=== PATIENT | male | born 1970 | race Caucasian/White ===

== ENCOUNTER 2023-08-22 19:57 | Emergency (ER) | payer BC, SELFPAY ==
[2023-08-22 20:06] VITALS: BP 173/117
--- NOTE | 2023-08-22 20:49 | ED.GENMED ---
History of Present Illness
General
Chief Complaint: DVT/Possible Blood Clot
Source: patient
Exam Limitations: none
Time Seen by Provider: 08/22/23 20:34
Travel History
Have you had any contact with someone who has COVID-19?: No
Do you have any symptoms of coronavirus? Fever > 100 degrees, chills, cough, shortness of breath, sore throat, loss of taste or smell, muscle aches, or headache?: No
History of Present Illness
History of Present Illness:
This is a 52 year old male that comes in with c/o left groin pain. States that yesterday when he was at work in [employer] around 12 noon he started with pain in the left groin. Stae that this has progressed and he know has a hard time walking and the
pain goes down into his leg. States that he felt that the left thigh was swollen today. States that he took Advil yesterday and this did nothing for the pain. States that he does work out but he was not working out yesterday. Denies any fever,
chills, chest pain, SOB, abd pain, nausea, vomiting, diarrhea, headache, dizziness, urinary burning.
Past History
Past History
ED Past Medical History: None; Negative Asthma, HTN, Hypercholesterolemia or NIDDM
ED Past Surgical History: None
Social History
Tobacco: Non-smoker
Alcohol: None
Personal:
Living: with family
Employment: Employed
Review of Systems
Review of Systems
All Other Systems: ROS reviewed and negative except as documented in HPI and ROS
Constitutional: Reports no symptoms; Denies fever or chills
EENT: Reports no symptoms
Respiratory: Reports no symptoms; Denies cough or trouble breathing
Cardiac: Reports no symptoms; Denies chest pain
ABD/GI: Reports no symptoms; Denies abdominal pain, nausea, vomiting or diarrhea
: Reports no symptoms; Denies dysuria, frequency or urgency
Musculoskeletal: Reports other (Pain left groin into left leg )
Skin: Reports no symptoms
Neurological: Reports no symptoms; Denies dizzy or headache
Psychiatric: Reports no symptoms
Phy Exam
General Physical Exam
General Presentation: moderate distress
General age: appears stated age
General Skin: warm and dry
General Habitus: normal
General Mental: alert
General Hydration: appears well hydrated
ENT Exam
ENT Exam: TM's normal, pharynx normal and neck supple
Eye Exam
Eye Exam: EOMI
Cardiovascular Exam
Cardiovascular Exam: regular rate/rhythm, no edema, no murmur and normal peripheral pulses
Pulmonary Exam
Pulmonary Exam: lungs clear, no respiratory distress, no rales, chest non tender, no crackles, no rhonchi, no wheezing and no cough
Gastrointestinal Exam
Gastrointestinal Exam: normal bowel sounds, non tender, soft, no organomegaly, no pulsatile mass and non distended
Musculoskeletal Exam
Musculoskeletal Exam: no edema and other (Limited ROM left leg due to pain. Left groin palpable tenderness. Negative for any redness or swelling noted)
Skin Exam
Skin Exam: normal color, warm/dry, no rash and no petechia
Psychiatric Exam
Psychiatric Exam: normal mood/affect
Course
Orders/Labs/Results
Orders:
Orders
08/22/23 20:08
US Legs, Left [US Periph Venous LOWER Ext LT] Urgent
Comment:
Reason For Exam: pain and swelling
08/22/23 20:48
Hip, Left 2-3 Views [CR Hip - LT w/wo Pel 2-3 Vw*] Urgent
Comment:
Reason For Exam: lEFT GROIN PAIN
Include a pelvis x-ray?: Yes
08/22/23 21:00
Ketorolac [Toradol] 30 mg IV NOW STA
08/22/23 21:02
Acetaminophen [Tylenol] 1,000 mg PO NOW STA
08/22/23 21:06
Complete Blood Count/With Diff Urgent
Comprehensive Metabolic Panel Urgent
Abnormal Lab Results
08/22/23
21:06
RBC 4.51 L 10^6/uL
(4.70-6.10)
MCH 31.7 H pg
(27.0-31.0)
Absolute Neuts (auto) 7.3 H 10^3/uL
(1.4-6.5)
Absolute Monos (auto) 1.8 H 10^3/uL
(0.1-0.6)
Lymphocytes % 15.2 L %
(20.5-51.1)
Monocytes % 17.0 H %
(1.7-9.3)
BUN 21 H mg/dl
(9-20)
Glucose 115 H mg/dl
(70-99)
08/22/23 21:06
08/22/23 21:06
Slight Dehydration. Glucose nonfasting.
Vital Signs
Initial and Last Documented VS:
Initial Vital Signs
Temp Pulse Resp BP Pulse Ox
98.1 F 113 18 173/117 98
08/22/23 20:06 08/22/23 20:06 08/22/23 20:06 08/22/23 20:06 08/22/23 20:06
Last Documented Vital Signs
Temp Pulse Resp BP Pulse Ox
98.1 F 91 18 123/89 100
08/22/23 20:06 08/22/23 22:27 08/22/23 20:06 08/22/23 22:27 08/22/23 20:51
MDM/Problems Addressed
Differential Diagnosis Includes:
Pulled groin Muscle. Pelvic fracture
MDM/Problems Addressed:
This is a 52 year old male that comes in with c/o left groin pain. States that this started yesterday when he was in [place]. States that he took Advil yesterday and this did not help.
Will get labs, US and medicate for pain.
Back into see patient and explained that he does have a DVT.Patient will be place on a blood thinner and given his first dose here. Patient to follow up with the family doctor. Patient to return with any concerns.
Chronic conditions affecting care:
NA
Acute Exacerbation and/or Progression of Chronic Illness:
NA
*Radiology
Radiology exam reviewed: radiology read reviewed (Left hip- Negative for acute fracture or dislocation. Possible previous left labral injury. Nonurgent MRI of the left hip could be performed if further imaging is indicated. US- There is occlusive
thrombus in the left peroneal vein of the calf. NO other evidence of deep venous thrombosis of the) and other (US cont- left lower extremity. )
*Pulse Oximetry
Patient hypoxic: no
*EKG
Interpreted by ED Provider?: NA
Rate: EKG- N/A
*Third Miller Interpretation
Rate: Third Miller- N/A
*Critical Care Note
Total Time (30-74mins, 75-104mins- exclusive of procedures): Not Applicable
ED Attending Note
-
Portions of this chart may have been created with voice recognition software.� Occasional wrong word or��sound alike� substitutions may have occurred due to the inherent limitations of voice recognition software.
Discharge Plan
Departure
Patient Disposition: Home (Routine Discharge)
Date of Disposition: 08/22/23
Time of Disposition: 23:02
Patient with high blood pressure during this ER visit?: No
Condition: Good
Covid-19: Not Applicable
Discharge Problem:
DVT (deep venous thrombosis)
Instructions: Deep Vein Thrombosis (Blood Clots in the Legs) (DC)
Prescriptions:
New
Eliquis 5 mg tablet
10 mg PO BID 7 Days Qty: 28 0RF
Referrals:
Wayne Hager MD [Family Provider] - Follow up in 2-3 days
Activity Restrictions/Additional Instructions:
As discussed, you have a blood clot in the left peroneal vein of the calf. You have been place on a blood thinner. Please take the Eliquis 10mg BID for the next 7 days. You will need to follow up with the family doctor for the second Prescription as
the dosage decreased after the first week. You may use Tylenol 1000mg every 6 hours for pain. PLEASE NO ALEVE, MOTRIN ADVIL. IF YOU FALL AND HIT YOUR HEAD OU WILL NEED TO RETURN TO THE EMERGENCY ROOM. Please follow up with the family doctor in the
next 2-3 days for recheck. IF YOU HAVE INCREASED PAIN, REDNESS OR YOU HAVE ANY OTHER CONCERNS PLEASE RETURN TO THE EMERGENCY ROOM.
Interventions
Interventions:
*Risk Screen - Suicide Last Done: 08/22/23 20:06
*General Assessment Last Done: 08/22/23 20:06
*Neglect/Abuse Screening Last Done: 08/22/23 20:06
*ED COVID-19 Vaccine History Last Done: 08/22/23 20:06
ED- Cardiac Assessment Last Done: 08/22/23 20:51
ED- Pulmonary Assessment Last Done: 08/22/23 20:51
ED-Peripheral Vascular Assessment Last Done: 08/22/23 20:51
ED-Skin Assessment Last Done: 08/22/23 20:51
[2023-08-22] MEDS: TYLENOL 1000 MG PO (21:06)
[2023-08-22] MEDS: TORADOL 30 MG IV (21:06)
[2023-08-22 21:10] LABS: % Basophils 0.3 % (0-2); % Eosinophils 0.1 % (0-6); % Immature Granulocytes 0.2 % (0-0.5); % Lymphocytes 15.2 % (20.5-51.1); % Neutrophils 67.2 % (42.2-75.2); Absolute Lymphocytes 1.6 10^3/uL (1.2-3.4); Absolute Monocytes 1.8 10^3/uL (0.1-0.6); Absolute Neutrophils 7.3 10^3/uL (1.4-6.5); Hemoglobin 14.3 g/dL (13.0-18.0); Mean Corp Hgb Conc. 36.7 g/dL (33.0-37.0); Mean Corpuscular Hgb 31.7 pg (27.0-31.0); Mean Corpuscular Volume 86.5 fL (80.0-94.0); Mean Platelet Volume 8.1 fL (7.4-10.4); Nucleated Red Blood Cells % 0 % (-); Platelet Count 295 10^3/uL (130-400); Red Blood Cell Count 4.51 10^6/uL (4.70-6.10); Red Cell Dist. Width 12.3 % (11.5-14.5); White Blood Cell Count 10.8 10^3/uL (4.8-10.8)
[2023-08-22 21:24] LABS: ALT (SGPT) 33 U/L (0-50); AST (SGOT) 32 U/L (17-59); Albumin 4.9 g/dl (3.5-5.0); Alkaline Phosphatase 98 U/L (38-126); Blood Urea Nitrogen 21 mg/dl (9-20); Calcium 9.6 mg/dl (8.4-10.2); Carbon Dioxide 25 mmol/L (22-30); Chloride 105 mmol/L (98-107); Glucose 115 mg/dl (70-99); Potassium 4.2 mmol/L (3.5-5.1); Sodium 136 mmol/L (135-145); Total Bilirubin 0.7 mg/dl (0.2-1.3); Total Protein 7.8 g/dl (6.3-8.2); eGFR > 60.00
[2023-08-22 22:27] VITALS: BP 123/89
[2023-08-22] MEDS: ELIQUIS 10 MG PO (23:13)
[2023-08-22 23:25] VITALS: BP 137/91
== END 2023-08-22 23:26 | disposition home or self-care (01) ==
LOC: EMR 19:57
PROVIDERS: Clinical Nurse Specialist Family Health; EMERGENCY PHYSICIAN Student in an Organized Health Care Education/Training Program; FAMILY PHYSICIAN Family Medicine
DX: I82.402 Acute embolism and thrombosis of unspecified deep veins of left lower extremity (principal)
CPT/HCPCS: 99284; 96374; 73502; 80053; 85025; 93971

== ENCOUNTER 2023-08-24 17:12 | Observation (INO) | payer BC, SELFPAY ==
[2023-08-24 12:32] VITALS: BP 166/97
[2023-08-24] MEDS: NSS 1000 IV (14:20)
[2023-08-24 14:42] LABS: % Basophils 0.6 % (0-2); % Eosinophils 0.7 % (0-6); % Immature Granulocytes 0.2 % (0-0.5); % Lymphocytes 17.9 % (20.5-51.1); % Monocytes 14.3 % (1.7-9.3); % Neutrophils 66.3 % (42.2-75.2); Absolute Basophils 0.1 10^3/uL (0-0.2); Absolute Eosinophils 0.1 10^3/uL (0-0.7); Absolute Lymphocytes 1.6 10^3/uL (1.2-3.4); Absolute Monocytes 1.2 10^3/uL (0.1-0.6); Absolute Neutrophils 5.8 10^3/uL (1.4-6.5); Hematocrit 36.9 % (39.0-52.0); Hemoglobin 13.2 g/dL (13.0-18.0); Mean Corp Hgb Conc. 35.8 g/dL (33.0-37.0); Mean Corpuscular Hgb 31.3 pg (27.0-31.0); Mean Corpuscular Volume 87.4 fL (80.0-94.0); Mean Platelet Volume 8.3 fL (7.4-10.4); Nucleated Red Blood Cells % 0 % (-); Platelet Count 272 10^3/uL (130-400); Red Blood Cell Count 4.22 10^6/uL (4.70-6.10); Red Cell Dist. Width 12.5 % (11.5-14.5); White Blood Cell Count 8.7 10^3/uL (4.8-10.8)
[2023-08-24 15:00] LABS: ALT (SGPT) 57 U/L (0-50); AST (SGOT) 61 U/L (17-59); Albumin 4.3 g/dl (3.5-5.0); Alkaline Phosphatase 91 U/L (38-126); Blood Urea Nitrogen 17 mg/dl (9-20); Calcium 9.3 mg/dl (8.4-10.2); Carbon Dioxide 26 mmol/L (22-30); Chloride 107 mmol/L (98-107); Glucose 98 mg/dl (70-99); Potassium 3.8 mmol/L (3.5-5.1); Sodium 138 mmol/L (135-145); Total Bilirubin 1.3 mg/dl (0.2-1.3); Total CK 126 U/L (55-170); Total Protein 7.1 g/dl (6.3-8.2); eGFR > 60.00
--- NOTE | 2023-08-24 15:18 | ED.MUSCINJ ---
HPI-Injury
<Clarisse Whitmore CHAR HOUSE SUPERVISOR - Last Filed: 08/25/23 12:35>
General
Chief Complaint: Musculo-Skeletal Complaint
Source: patient and physician
Exam Limitations: none
Time Seen by Provider: 08/24/23 13:03
Nursing documentation reviewed up to this point in time: agreed with
Travel History
Have you had any contact with someone who has COVID-19?: No
Do you have any symptoms of coronavirus? Fever > 100 degrees, chills, cough, shortness of breath, sore throat, loss of taste or smell, muscle aches, or headache?: No
History of Present Illness-Injury
Initial Injury comments:
52 yo male with persistent and worsening pain left hip and thigh over past 3 days. seen here 2 days ago and dx with DVT occlusive thrombus in the left peroneal vein of the calf and started on Eliquis. Followed up with PCP Dr. Hager today due to
increasing pain and sent here to r/o septic hip.
Pt denies fever, has no back pain
Had dental work 2 weeks ago, one week ago had foul taste in mouth for one day, then resolved.
Is able to ambulate but with pain.
Past History
<Clarisse Whitmore, [employer] HOU[employer] SUPERVISOR - Last Filed: 08/25/23 12:35>
Past History
ED Past Medical History: None; Negative Asthma, HTN, Hypercholesterolemia or NIDDM
ED Past Surgical History: None
Social History
Tobacco: Non-smoker
Alcohol: None
Personal:
Living: with family
Employment: Employed
Review of Systems
<Clarisse Whitmore, [employer] HOU[employer] SUPERVISOR - Last Filed: 08/25/23 12:35>
Review of Systems
Allergies reviewed?: Yes
All Other Systems: ROS reviewed and negative except as documented in HPI and ROS
Constitutional: Denies fever
ABD/GI: Denies abdominal pain
Musculoskeletal: Reports edema and other (pain left hip and thigh, mild swelling of thigh); Denies neck pain or back pain
Skin: Reports no symptoms
Neurological: Denies weakness
Phy Exam
<Clarisse Whitmore, [employer] HOUSE SUPERVISOR - Last Filed: 08/25/23 12:35>
Physical Exam
Physical Exam:
GENERAL: No acute distress. A&Ox3.
CONSTITUTIONAL: Afebrile.
EYES: clear, conjunctivae normal
ENMT: moist mucus membranes, Pharynx nl
RESPIRATORY: Regular respirations, nonlabored, lungs clear.
CARDIOVASCULAR: Regular rate and rhythm, no murmurs, no rubs.
GI: Soft, nontender, normal BS
MUSCULOSKELETAL: Left thigh slightly larger than right. No redness or warmth. Limited ROM left hip. Distal neurovascular intact. Ambulates with limp. Well perfused.
SKIN: Warm, dry, pink
PSYCH: Normal mood and affect. Well kept, interactive and appropriate
NEUROLOGIC: Awake, alert and oriented. No focal neurological deficits
Injury Course
<Clarisse Whitmore, [employer] SUPERVISOR - Last Filed: 08/25/23 12:35>
Orders/Labs/Results
Orders:
Orders
08/24/23 14:05
0.9% Sodium Chloride 1000 ml [Nss] 1,000 ml IV BOLUS
08/24/23 14:17
CPK Isoenzyme Urgent
CRP, Highly Sensitive Urgent
Complete Blood Count/With Diff Urgent
Comprehensive Metabolic Panel Urgent
Erythrocyte Sed Rate Urgent
Comment: ADD ON
08/24/23 Dinner
Regular
At Your Request: Full Participation
Does patient need a safe tray?: No
08/24/23 15:22
HYDROmorphone [Dilaudid] 1 mg IV NOW STA
Ondansetron Injectable [Zofran] 4 mg IV NOW STA
08/24/23 16:11
Admit/Transfer Patient As Directed
Co-Sign Provider:
Level of Care: Observation services
Assign to:: Medical/Surgical
Physician / Group: Monty
Diagnosis: Intractable hip pain
08/24/23 16:24
Lactic Acid Q4H
Comment: CANCEL 2nd LACTIC ACID IF 1st LACTIC ACID IS LESS THAN 2
Blood Culture Q30M
GEORGE Source: Blood/Venous
Specimen Description:
08/24/23 16:26
Blood Culture Q30M
GEORGE Source: Blood/Venous
Specimen Description:
08/24/23 16:49
Code Status As Directed
Resuscitation Status: Full Code
08/24/23 16:[address] See Dose Instructions PO NOW STA
Discontinue all Active Warfarin orders?: Yes
08/24/23 19:52
Acetaminophen [Tylenol] 1,000 mg PO Q6H PRN
HYDROmorphone [Dilaudid] 1 mg IV Q4HPRN PRN
Heparin 74757 Units/250 ml 25,000 units in 250 ml IV PER PROTOCOL
Weight to be used for heparin protocol in kilograms (kg):: 62.596
Protocol:: DVT/PE
PTT Goal Range to be used:: PTT 73 to 111 seconds
Order type:: Initial
INITIAL Infusion Dose (UNITS/KG/hr) & then follow protocol:: 18 units/kg/hr
Infusion Dose in UNITS/hr & then follow protocol (UNITS/hr):: 1,100
INFUSION RATE in mL/hr & then follow protocol (mL/hr):: 11
For DVT/PE algorithm, re-bolus for low PTT?: Yes
PTT less than or equal to 64 seconds:: Re-bolus 80 units/kg (max 10,000units). Increase by 300 units/hr
(+ 3mL/hr)
PTT 64.1 to 72.9 seconds:: Re-bolus 40 units/kg (max 5,000 units). Increase by 100 units/hr
(+ 1mL/hr)
PTT 73 to 111 seconds:: Target Range. No change in rate.
PTT 111.1 to 130.9 seconds:: Decrease rate by 100 units/hr (- 1 mL/hr)
PTT 131 to 199.9 seconds:: HOLD for 1 hr. Then decrease by 200 units/hr (- 2mL/hr)
PTT greater than or equal to 200 seconds:: HOLD for 2 hrs & Notify Provider. Then decrease by 300 units/hr
(- 3mL/hr)
Lab follow-up:: Each change, PTT q6h until 2 consecutive are therapeutic. Then
PTT daily.
Ondansetron Injectable [Zofran] 4 mg IV Q6HPRN PRN
08/24/23 19:52
Heparin Protocol- PTT Orders As Directed
PTT per Heparin protocol: -Obtain CBC and baseline PTT - if not already collected.
-Obtain PTT 6 hours from start of infusion. Then, every 6 hours until 2 consecutive
PTT's are therapeutic. Then, PTT Daily.
-With each rate change, obtain PTT every 6 hours until 2 consecutive PTT's are
therapeutic. Then, PTT Daily.
Activity As Directed
Activity Level: Out of Bed-Early Mobility
Notify MD As Directed
Notify physician if: PTT is greater than or equal to 200.
Precautions As Directed
Type of Precautions: Hip - Other
Comment: Fall precaution
Vital Signs As Directed
Frequency: Per unit guidelines
08/24/23 20:04
Complete Blood Count/No Diff Urgent
Comment: Obtain baseline before beginning heparin infusion if not already collected
08/25/23 04:59
Complete Blood Count/With Diff IN AM
08/26/23 06:00
Complete Blood Count/No Diff Q2D
Comment: Notify MD if platelet count is <130,000 or decreases by 50% from baseline
08/28/23 06:00
Complete Blood Count/No Diff Q2D
Comment: Notify MD if platelet count is <130,000 or decreases by 50% from baseline
08/30/23 06:00
Complete Blood Count/No Diff Q2D
Comment: Notify MD if platelet count is <130,000 or decreases by 50% from baseline
09/01/23 06:00
Complete Blood Count/No Diff Q2D
Comment: Notify MD if platelet count is <130,000 or decreases by 50% from baseline
09/03/23 06:00
Complete Blood Count/No Diff Q2D
Comment: Notify MD if platelet count is <130,000 or decreases by 50% from baseline
09/05/23 06:00
Complete Blood Count/No Diff Q2D
Comment: Notify MD if platelet count is <130,000 or decreases by 50% from baseline
09/07/23 06:00
Complete Blood Count/No Diff Q2D
Comment: Notify MD if platelet count is <130,000 or decreases by 50% from baseline
09/09/23 06:00
Complete Blood Count/No Diff Q2D
Comment: Notify MD if platelet count is <130,000 or decreases by 50% from baseline
Abnormal Lab Results
08/24/23
14:17
RBC 4.22 L 10^6/uL
(4.70-6.10)
Hct 36.9 L %
(39.0-52.0)
MCH 31.3 H pg
(27.0-31.0)
Absolute Monos (auto) 1.2 H 10^3/uL
(0.1-0.6)
Lymphocytes % 17.9 L %
(20.5-51.1)
Monocytes % 14.3 H %
(1.7-9.3)
AST 61 H U/L
(17-59)
ALT 57 H U/L
(0-50)
08/24/23 14:17
08/24/23 14:17
Bag Sorter consulted with Physician
Bag Sorter consulted with physician?: Yes
Name of Physician Consulted: Jaspal
<Wan Shay, DO - Last Filed: 08/24/23 15:49>
Orders/Labs/Results
Orders:
Orders
08/24/23 14:05
0.9% Sodium Chloride 1000 ml [Nss] 1,000 ml IV BOLUS
08/24/23 14:17
CPK Isoenzyme Urgent
CRP, Highly Sensitive Urgent
Complete Blood Count/With Diff Urgent
Comprehensive Metabolic Panel Urgent
Erythrocyte Sed Rate Urgent
Comment: ADD ON
08/24/23 Dinner
Regular
At Your Request: Full Participation
Does patient need a safe tray?: No
08/24/23 15:22
HYDROmorphone [Dilaudid] 1 mg IV NOW STA
Ondansetron Injectable [Zofran] 4 mg IV NOW STA
08/24/23 16:11
Admit/Transfer Patient As Directed
Co-Sign Provider:
Level of Care: Observation services
Assign to:: Medical/Surgical
Physician / Group: Monty
Diagnosis: Intractable hip pain
08/24/23 16:24
Lactic Acid Q4H
Comment: CANCEL 2nd LACTIC ACID IF 1st LACTIC ACID IS LESS THAN 2
Blood Culture Q30M
GEORGE Source: Blood/Venous
Specimen Description:
08/24/23 16:26
Blood Culture Q30M
GEORGE Source: Blood/Venous
Specimen Description:
08/24/23 16:49
Code Status As Directed
Resuscitation Status: Full Code
08/24/23 16:[address] See Dose Instructions PO NOW STA
Discontinue all Active Warfarin orders?: Yes
08/24/23 19:52
Acetaminophen [Tylenol] 1,000 mg PO Q6H PRN
HYDROmorphone [Dilaudid] 1 mg IV Q4HPRN PRN
Heparin 72829 Units/250 ml 25,000 units in 250 ml IV PER PROTOCOL
Weight to be used for heparin protocol in kilograms (kg):: 62.596
Protocol:: DVT/PE
PTT Goal Range to be used:: PTT 73 to 111 seconds
Order type:: Initial
INITIAL Infusion Dose (UNITS/KG/hr) & then follow protocol:: 18 units/kg/hr
Infusion Dose in UNITS/hr & then follow protocol (UNITS/hr):: 1,100
INFUSION RATE in mL/hr & then follow protocol (mL/hr):: 11
For DVT/PE algorithm, re-bolus for low PTT?: Yes
PTT less than or equal to 64 seconds:: Re-bolus 80 units/kg (max 10,000units). Increase by 300 units/hr
(+ 3mL/hr)
PTT 64.1 to 72.9 seconds:: Re-bolus 40 units/kg (max 5,000 units). Increase by 100 units/hr
(+ 1mL/hr)
PTT 73 to 111 seconds:: Target Range. No change in rate.
PTT 111.1 to 130.9 seconds:: Decrease rate by 100 units/hr (- 1 mL/hr)
PTT 131 to 199.9 seconds:: HOLD for 1 hr. Then decrease by 200 units/hr (- 2mL/hr)
PTT greater than or equal to 200 seconds:: HOLD for 2 hrs & Notify Provider. Then decrease by 300 units/hr
(- 3mL/hr)
Lab follow-up:: Each change, PTT q6h until 2 consecutive are therapeutic. Then
PTT daily.
Ondansetron Injectable [Zofran] 4 mg IV Q6HPRN PRN
08/24/23 19:52
Heparin Protocol- PTT Orders As Directed
PTT per Heparin protocol: -Obtain CBC and baseline PTT - if not already collected.
-Obtain PTT 6 hours from start of infusion. Then, every 6 hours until 2 consecutive
PTT's are therapeutic. Then, PTT Daily.
-With each rate change, obtain PTT every 6 hours until 2 consecutive PTT's are
therapeutic. Then, PTT Daily.
Activity As Directed
Activity Level: Out of Bed-Early Mobility
Notify MD As Directed
Notify physician if: PTT is greater than or equal to 200.
Precautions As Directed
Type of Precautions: Hip - Other
Comment: Fall precaution
Vital Signs As Directed
Frequency: Per unit guidelines
08/24/23 20:04
Complete Blood Count/No Diff Urgent
Comment: Obtain baseline before beginning heparin infusion if not already collected
08/25/23 04:59
Complete Blood Count/With Diff IN AM
08/26/23 06:00
Complete Blood Count/No Diff Q2D
Comment: Notify MD if platelet count is <130,000 or decreases by 50% from baseline
08/28/23 06:00
Complete Blood Count/No Diff Q2D
Comment: Notify MD if platelet count is <130,000 or decreases by 50% from baseline
08/30/23 06:00
Complete Blood Count/No Diff Q2D
Comment: Notify MD if platelet count is <130,000 or decreases by 50% from baseline
09/01/23 06:00
Complete Blood Count/No Diff Q2D
Comment: Notify MD if platelet count is <130,000 or decreases by 50% from baseline
09/03/23 06:00
Complete Blood Count/No Diff Q2D
Comment: Notify MD if platelet count is <130,000 or decreases by 50% from baseline
09/05/23 06:00
Complete Blood Count/No Diff Q2D
Comment: Notify MD if platelet count is <130,000 or decreases by 50% from baseline
09/07/23 06:00
Complete Blood Count/No Diff Q2D
Comment: Notify if platelet count is <130,000 or decreases by 50% from baseline
09/09/23 06:00
Complete Blood Count/No Diff Q2D
Comment: Notify MD if platelet count is <130,000 or decreases by 50% from baseline
Abnormal Lab Results
08/24/23
14:17
RBC 4.22 L 10^6/uL
(4.70-6.10)
Hct 36.9 L %
(39.0-52.0)
MCH 31.3 H pg
(27.0-31.0)
Absolute Monos (auto) 1.2 H 10^3/uL
(0.1-0.6)
Lymphocytes % 17.9 L %
(20.5-51.1)
Monocytes % 14.3 H %
(1.7-9.3)
AST 61 H U/L
(17-59)
ALT 57 H U/L
(0-50)
08/24/23 14:17
08/24/23 14:17
Julialt;Clarisse Whitmore [employer] SUPERVISOR - Last Filed: 08/25/23 12:35>
MDM/Problems Addressed
Differential Diagnosis Includes:
bursitis, septic joint, occult fracture, hemarthrosis (on Eliquis)
MDM/Problems Addressed:
52 yo male with persistent and worsening pain left hip and thigh over past 3 days. seen here 2 days ago and dx with DVT occlusive thrombus in the left peroneal vein of the calf and started on Eliquis. Followed up with PCP Dr. Hager today due to
increasing pain and sent here to r/o septic hip.
Pt denies fever, has no back pain
Had dental work 2 weeks ago, one week ago had foul taste in mouth for one day, then resolved.
Is able to ambulate but with pain.
08/24/2023 1539 PM
Xray from 08/21 reviewed: IMPRESSION: Negative for acute fracture or dislocation.
Possible previous left labral injury. Nonurgent MRI of the left hip could be performed if further imaging is indicated.
08/24/[address] Shay into evaluate patient, agrees to proceed with checking MRI to evaluate for septic joint
spoke with Dr. Parekh radiologist who states no health physics technician here now
Plan: admit, pain management, MRI
Hospitalist notified of admission
<Clarisse Whitmore, [employer] SUPERVISOR - Last Filed: 08/25/23 12:35>
*Critical Care Note
Total Time (30-74mins, 75-104mins- exclusive of procedures): Not Applicable
ED Attending Note
<Clarisse Whitmore, [employer] SUPERVISOR - Last Filed: 08/25/23 12:35>
-
Portions of this chart may have been created with voice recognition software.� Occasional wrong word or��sound alike� substitutions may have occurred due to the inherent limitations of voice recognition software.
<Wan Shay, DO - Last Filed: 08/24/23 15:49>
ED Attending Note
Patient seen and examined by attending physician: Yes
I performed the substantive portion of visit, reviewed & personally made and approve the management plan that is documented in note by myself or WAYNE.: Yes
ED Attending Note:
Seen with [employer]SE SUPERVISOR examined independently calling from PCP noted 52-year-old male had some dental work a few weeks ago possibly had an infection, then developed left hip pain diagnosed with a DVT on Eliquis trouble ambulating no fever
Not a great candidate for arthrocentesis due to being on Eliquis suspect he will require admission consideration for MRI or other imaging specialty consultation
Discharge Plan
Departure
Patient Disposition: Admit
Date of Disposition: 08/24/23
Time of Disposition: 16:04
Admit to: Med/Surg
Presentation/result/management discussed w/ accepting MD/DO: Hospitalist
Condition: Fair
Discharge Problem:
Acute pain of left hip
Interventions
Interventions:
*Risk Screen - Suicide Last Done: 08/24/23 12:32
*General Assessment Last Done: 08/24/23 13:46
*Neglect/Abuse Screening Last Done: 08/24/23 12:32
ED- Fall Risk Assessment Last Done: 08/24/23 13:46
*ED COVID-19 Vaccine History Last Done: 08/24/23 12:32
*Nursing Disposition Last Done: 08/24/23 13:46
ED-Musculoskeletal Assessment Last Done: 08/24/23 13:45
Discharge Date and Time
Discharge Date/Time: 08/24/23 18:46
[2023-08-24 15:24] LABS: CKMB 1.3 ng/ml (0.0-2.4)
[2023-08-24] MEDS: DILAUDID 1 MG IV ×2 (16:06→21:23)
[2023-08-24] MEDS: ZOFRAN 4 MG IV ×2 (16:07→22:15)
--- NOTE | 2023-08-24 16:55 | HPS.HSE ---
Family Physician
-
Family Physician: Wayne Hager
Chief Complaint
-
Intractable pain in left hip
History of Present Illness
52-year-old male who was in the hospital couple days ago for the left hip pain where he was diagnosed with occluded DVT in the left peroneal vein, he was discharged on Eliquis, since then his pain is continuously getting worse to the point affect
his activities, the pain worse when he moves his hip around, better when he stand on the hip, denies any fever or chills or cough or congestion, denies any trauma or accident, denies any bleeding event or change in stool or urine color, no chest
pain or shortness of breath. Pain in the left inguinal area radiating to the left buttock and laterally in the hip,
Saw his primary care physician Dr. Frost who examined him in the office and sent to the hospital for evaluation of the septic arthritis in the left hip.
Unfortunately MRI cannot be done today because of some technical issues as ER contacted radiology department.
Patient's primary care physician was in the ER visiting the patient as well and I discussed the patient's condition with him.
Patient accompanied by the sister at the bedside.
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
Medical History
Past Medical History
Past Medical History: Reports Other
Additional Past Medical History:
Past medical history Reviewed:
Recent diagnosis of the DVT.
Social history: Denies smoking alcohol use and is independent.
Family history: Negative for any DVT thromboembolism
Past Surgical History: Reports Other
Social History
Unable to obtain full social history at this time due to: Other
Living: Other
Family History
Family History: Other
Allergies / Home Medications
Allergies reflects when Allergies were last updated in [employer].
Home Medications with original date entered in [employer]
Allergy/Medication List:
Allergies
Allergy/AdvReac Type Severity Reaction Status Date / Time
No Known Allergies Allergy Verified 08/24/23 12:38
Home Medications
apixaban 5 mg tablet (Eliquis) 10 mg PO BID Blood clot prevention/tx 7 days #28 tabs 08/22/23
acetaminophen 500 mg tablet 1,000 mg PO Q6H PRN mild pain 08/24/23
Review of Systems
-
A 12 point ROS was completed and negative except as noted: Yes
Physical Exam
Vital Signs
Vital Signs
Temp Pulse Resp BP Pulse Ox
98.0 F 88 17 166/97 99
08/24/23 12:32 08/24/23 16:44 08/24/23 16:44 08/24/23 12:32 08/24/23 16:44
physical exam:
General: Awake, alert and oriented x3, not in distress and holds appropriate conversation.
HEENT: No active discharge, ecchymosis or bruising, moist lips, tongue and mucous membrane.
Eyes: No discharge or red conjunctiva, no nystagmus, pupils are reactive and equal
Neck:Supple, no JVD no bruit no goiter.
Respiratory: Normal AP contour and diameter, normal chest wall movement, normal respiratory effort, no respiratory distress,
Lungs: Good air entry bilaterally, no wheezing or rhonchi, no rales or crackles
Heart: S1, S2 regular, normal rate, no added sound.
Gastrointestinal: Positive bowel sounds, soft, nontender, no guarding or rigidity or organomegaly
Musculoskeletal: Limitation of movement of the left hip, triggered the pain with any kind of movement, no swelling or redness of the left hip or any other joints,, no chest wall abnormality or tenderness. All other joints and extremities have good
range of motion, no muscle tenderness or any joint swelling or tenderness.
Extremities: Mild left lower extremity pitting edema, which is better than before according to the patient and the sister, good peripheral pulses, good range of motion
Skin: Warm and dry, no ulceration, normal color.
Neurological: Awake, alert and oriented x3, cranial nerve II-XII grossly intact, speech clear and comprehensive, good muscle tone, normal sensory and motor function
Psychiatric: Normal mood, normal thought and judgment, normal affect,
Physical Exam
General: Other
Laboratory Results
-
08/24/23 14:17
08/24/23 14:17
Laboratory Results
Total Bilirubin 1.3 mg/dl (0.2-1.3) 08/24/23 14:17
AST 61 U/L (17-59) H 08/24/23 14:17
ALT 57 U/L (0-50) H 08/24/23 14:17
Alkaline Phosphatase 91 U/L (38-126) 08/24/23 14:17
Left hip x-ray done on August 22, 2023:
Negative for acute fracture or dislocation.
Possible previous left labral injury. Nonurgent MRI of the left hip could be performed if further imaging is indicated.
Data Reviewed
-
Diagnostic Radiology: Image Personally Visualized and interpreted, Discussed with Physician, Discussed with Patient and Discussed with Family
Lab Data: Labs Reviewed by me, Discussed with Physician, Discussed with Patient and Discussed with Family
Old Records: Reviewed
Impression/Plan
-
IMPRESSION:
52-year-old male was sent by primary care physician for evaluation of the intractable left hip pain, this is second visit not of couple day initially diagnosed with a left leg DVT where the swelling is much better.
Concern for septic arthritis or avascular necrosis, doubted lower back or knee joint related as pain is triggered by any kind of movement of the left hip.
Intractable left hip pain, concerning for septic arthritis avascular necrosis, while fracture could be a possibility which is not seen on x-ray. Hemarthrosis could be a possibility especially being on Eliquis but his pain was day before starting on
Eliquis
Lumbar radiculopathy could be a possibility but unlikely
Referred in for management and the possibility unlikely.
Doubt related to the DVT
DVT of the left peroneal vein. Improvement of the left leg edema
PLAN:
MRI of the left hip ordered,
I will hold off for consult pending the MRI finding and may consider IR CONSULT.
HOLD ELIQUIS AND START ON HEPARIN DRIP IN CASE REQUIRE ASPIRATION OF LEFT HIP JOINT.
Pain medication with Dilaudid-milligram every 4 hours as needed can be uptitrated as needed to
He is on Tylenol as needed we will continue.
Blood cultures collected
ESR, CRP and lactic acid all pending.
All discussed with the patient
Discussed with the family
Discussed with his primary care physician.
[2023-08-24 16:57] LABS: Lactic Acid 0.7 mmol/L (0.7-2.0)
[2023-08-24 18:35] VITALS: BP 138/96; BMI 21.8
[2023-08-24 18:41] LABS: Erythrocyte Sed Rate 3 mm/hour (0-20)
[2023-08-24 20:12] LABS: Hematocrit 38.1 % (39.0-52.0); Hemoglobin 13.4 g/dL (13.0-18.0); Mean Corp Hgb Conc. 35.2 g/dL (33.0-37.0); Mean Corpuscular Hgb 31.1 pg (27.0-31.0); Mean Corpuscular Volume 88.4 fL (80.0-94.0); Mean Platelet Volume 8.2 fL (7.4-10.4); Platelet Count 290 10^3/uL (130-400); Red Blood Cell Count 4.31 10^6/uL (4.70-6.10); Red Cell Dist. Width 12.4 % (11.5-14.5); White Blood Cell Count 8.6 10^3/uL (4.8-10.8)
[2023-08-24 20:39] LABS: APTT 32.3 Sec (23.4-35.0)
[2023-08-24] MEDS: HEPARIN 25000 UNITS/250 ML IV (21:56)
[2023-08-24 23:00] VITALS: BP 129/91
[2023-08-25] MEDS: ZOFRAN 4 MG IV (05:19)
[2023-08-25] MEDS: TYLENOL 1000 MG PO ×3 (05:19→22:24)
[2023-08-25 05:24] LABS: % Basophils 0.3 % (0-2); % Eosinophils 0.3 % (0-6); % Immature Granulocytes 0.3 % (0-0.5); % Lymphocytes 20.3 % (20.5-51.1); % Neutrophils 63.8 % (42.2-75.2); Absolute Lymphocytes 1.8 10^3/uL (1.2-3.4); Absolute Monocytes 1.4 10^3/uL (0.1-0.6); Absolute Neutrophils 5.8 10^3/uL (1.4-6.5); Hematocrit 38.4 % (39.0-52.0); Hemoglobin 13.3 g/dL (13.0-18.0); Mean Corp Hgb Conc. 34.6 g/dL (33.0-37.0); Mean Corpuscular Hgb 31.7 pg (27.0-31.0); Mean Corpuscular Volume 91.4 fL (80.0-94.0); Mean Platelet Volume 8.6 fL (7.4-10.4); Nucleated Red Blood Cells % 0 % (-); Platelet Count 304 10^3/uL (130-400); Red Cell Dist. Width 12.5 % (11.5-14.5); White Blood Cell Count 9.1 10^3/uL (4.8-10.8)
[2023-08-25 05:37] LABS: APTT 52.5 Sec (23.4-35.0)
[2023-08-25] MEDS: HEPARIN 5000 UNITS IV (05:57)
[2023-08-25 07:00] VITALS: BP 128/87
--- NOTE | 2023-08-25 07:33 | W.PN.HOSP.TC ---
Today's Communication/Plan
-
Pain Control
PT/OT eval
hep gtt completed, Eliquis resumed
Assessment / Plan
Assessment / Plan
Physical Exam
General: No pallor, cyanosis, or jaundice.
HEENT: Throat clear. PERRLA Normocephalic atraumatic
NECK: Supple. No JVD Carotid Bruits
RESPIRATORY: Lungs clear to auscultation. No crackles wheezes stridor
CVS: S1, S2 normal. RRR. No murmur, rub or gallop.
ABDOMEN: Soft, non-tender. No distension. BS+/normal.
EXTREMITIES: No peripheral cyanosis or edema, limited range of motion LLE d/t left hip pain
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
52M recently diagnosed DVT p/w intractable left hip pain unclear etiology.
Intractable left hip pain, MRI ruled out septic arthritis, pain d/t avulsion Left rectus femoris proximal attachment
DVT
PLAN:
Hep gtt completed, Eliquis resumed
follow blood cultures though septic arthritis ruled out as above
Orthopedic eval appreciated Pain control, PT/OT, outpt follow up 2-4 weeks
pain control scheduled Tylenol, prn tramadol
dvt ppx Eliquis
Full code
I spent a total of 52 minutes with the patient or on the floor. More than 50% of this time involved counseling and coordination of care.
Anticipated Discharge: Within 24 hours
Subjective/Interval History
-
Date of Service: August 25, 2023
Left hip pain persists. Patient otherwise able to ambulate though with difficulty.
Objective Data
-
Labs:
Laboratory Results
08/24/23 08/24/23 08/25/23
20:04 20:24 04:59
WBC 8.6 9.1
Hgb 13.4 13.3
Hct 38.1 L 38.4 L
Plt Count 290 304
APTT Cancelled 32.3 52.5 H
08/25/23 08/25/23
12:00 12:01
WBC
Hgb
Hct
Plt Count
APTT Cancelled Pending
Vital Signs:
Vital Signs
Temp Pulse Resp BP Pulse Ox
98.2 F 77 18 129/91 99
08/24/23 23:00 08/24/23 23:00 08/24/23 23:00 08/24/23 23:00 08/24/23 23:00
I&O
08/24/23 08/25/23 08/26/23
05:59 06:59 06:59
Intake Total
Balance
[2023-08-25 13:16] LABS: ALT (SGPT) 49 U/L (0-50); AST (SGOT) 47 U/L (17-59); Albumin 4.5 g/dl (3.5-5.0); Alkaline Phosphatase 91 U/L (38-126); Blood Urea Nitrogen 17 mg/dl (9-20); Calcium 9.6 mg/dl (8.4-10.2); Carbon Dioxide 26 mmol/L (22-30); Chloride 106 mmol/L (98-107); Estimated Creatinine Clearance 94 ml/min; Glucose 96 mg/dl (70-99); Potassium 4.1 mmol/L (3.5-5.1); Sodium 138 mmol/L (135-145); Total Bilirubin 0.9 mg/dl (0.2-1.3); Total Protein 7.5 g/dl (6.3-8.2); eGFR > 60.00
[2023-08-25 15:00] VITALS: BP 138/87
--- NOTE | 2023-08-25 16:25 | CON.ORTHO ---
Consultation - Orthopedics
History
Patient is a 52-year-old male who presents to the hospital for chief complaint of left hip pain. He was recently seen in the hospital for this issue and was diagnosed with an occluded left peroneal vein DVT. He was discharged on Eliquis at the
time. He still reports ongoing pain at the left hip. He was seen by his primary care physician Dr. Frost and was subsequently sent to the hospital for further evaluation of his left hip. An MRI was obtained which demonstrated avulsion injury to
the left rectus femoris and mild distal insertional tendinosis of the left gluteus minimus tendon. An orthopedic surgery consultation was subsequently rendered. He denies any recent falls, traumas or injuries. He states that he was driving home
from [place] this past Saturday when he first noticed the pain. He does not drink and has not an IV drug abuser. He feels certain positions make his pain worse, especially during bending and sitting. His pain improves when he is standing and
ambulating. Denies any numbness or tingling in his left lower extremity. Denies any fevers or chills. 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
Allergies / Home Medications
Allergy/AdvReac Type Severity Reaction Status Date / Time
No Known Allergies Allergy Verified 08/24/23 12:38
Medication Instructions Recorded
apixaban 5 mg tablet (Eliquis) 10 mg PO BID Blood clot 08/22/23
prevention/tx 7 days #28 tabs
acetaminophen 500 mg tablet 1,000 mg PO Q6H PRN mild pain 08/24/23
Vital Signs / Lab Results
Temp Pulse Resp BP Pulse Ox
98.7 F 90 18 138/87 99
08/25/23 15:00 08/25/23 15:00 08/25/23 15:00 08/25/23 15:00 08/25/23 15:00
08/25/23 04:59
08/25/23 11:41
Review of systems: Negative otherwise as indicated in H&P
General: Awake, alert, oriented x3; no acute distress
Head: Normocephalic, atraumatic
Eyes: Conjunctiva normal, sclera anicteric
Throat: Airway intact, handling secretions
Neck: Trachea midline, supple
Lungs: Breathing comfortably no distress
Heart: Regular rate
GI: Soft, Non Tender, Non Distended
MSK: Pain elicited upon palpation of left groin anteriorly. Some pain elicited on palpation of left greater trochanter. When sitting, only slight pain in groin upon internal/external rotation. Pain worsened with resisted flexion and with flexion
and deep internal rotation. He is able to stand and ambulate. He is also able to stand up on just his left foot without significant discomfort. No pain at the left knee. TA/EHL/GSC intact motor. Dorsalis pedis pulse 2+.
Imaging:
X-rays of the left hip demonstrate no acute fractures, dislocations or acute bony pathology.
MRI of the left hip demonstrates partial tearing of the proximal rectus femoris. Mild insertional gluteus minimus tendinosis present.
Assessment / Plan
Assessment:
Left hip pain, likely due to rectus femoris tearing and abductor tendinitis
Plan:
Left lower extremity weight-bear as tolerated
Pain control
PT/OT
Continue DVT prophylaxis for DVT
Follow-up in clinic in 2 to 4 weeks for outpatient evaluation
Please call with questions
--- NOTE | 2023-08-25 16:29 | CM ---
CM reviewed medical records. CM met with patient in room. Patient confirmed demographics. Patient lives independently. Patient denied history of VN, SNF or DME. Patient is active with his PCP. Patient uses [facility] in [place]. OBS letter given.
PLAN: home, watch for PT needs.
[2023-08-25] MEDS: ULTRAM 25 MG PO ×2 (17:06→22:27)
[2023-08-25] MEDS: ELIQUIS 10 MG PO (17:07)
[2023-08-25 19:27] LABS: APTT 32.9 Sec (23.4-35.0)
[2023-08-25 23:32] VITALS: BP 123/80
[2023-08-26 07:00] VITALS: BP 147/97
[2023-08-26] MEDS: ELIQUIS 10 MG PO (07:43)
[2023-08-26] MEDS: TYLENOL 1000 MG PO (07:43)
--- NOTE | 2023-08-26 09:21 | W.PN.HOSP.TC ---
Today's Communication/Plan
-
Discharge home with outpatient PT
Assessment / Plan
Assessment / Plan
52M recently diagnosed DVT p/w intractable left hip pain unclear etiology.
Intractable left hip pain, MRI ruled out septic arthritis, pain d/t avulsion Left rectus femoris proximal attachment
DVT
PLAN:
Status post heparin drip, currently on Eliquis 10 mg twice a day for 7 days, then 5 mg twice a day
follow blood cultures though septic arthritis ruled out as above
Appreciate orthopedic surgery input, they suspect rectus femoris tearing and abductor tendinitis
Tramadol is not helping, patient states oxycodone 5 mg works better
Medically stable for discharge today on Eliquis, oxycodone, and Tylenol
PT recommends outpatient PT, follow-up with orthopedic surgery in the office
dvt ppx Eliquis
Full code
Physical Exam
General: No pallor, cyanosis, or jaundice.
HEENT: Throat clear. PERRLA Normocephalic atraumatic
NECK: Supple. No JVD Carotid Bruits
RESPIRATORY: Lungs clear to auscultation. No crackles wheezes stridor
CVS: S1, S2 normal. RRR. No murmur, rub or gallop.
ABDOMEN: Soft, non-tender. No distension. BS+/normal.
EXTREMITIES: No peripheral cyanosis or edema, limited range of motion LLE d/t left hip pain
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
Anticipated Discharge: Today
Subjective/Interval History
-
Date of Service: August 26, 2023
Patient was able to ambulate around the hallways with physical therapy. He does complain of left hip pain. The tramadol is not helping. He also has constipation. No nausea, no vomiting.
Objective Data
-
Vital Signs:
Vital Signs
Temp Pulse Resp BP Pulse Ox
98.6 F 102 18 147/97 98
08/26/23 07:00 08/26/23 07:00 08/26/23 07:00 08/26/23 07:00 08/26/23 07:00
I&O
08/25/23 08/26/23 08/27/23
06:59 06:59 06:59
Intake Total 1140 / 1140
Balance 1140 / 1140
[2023-08-26 10:45] VITALS: BP 138/103; PULSE 88
[2023-08-26] MEDS: MIRALAX 17 GRAMS PO (11:04)
[2023-08-26] MEDS: DELTASONE 40 MG PO (11:04)
[2023-08-26] MEDS: ROXICODONE 5 MG PO (11:04)
[2023-08-26 12:59] VITALS: BP 146/105; BP 155/109; PULSE 86; O2SAT 99
--- NOTE | 2023-08-26 14:55 | CM ---
MD entered order for discharge,
Pts sister will drive him home.
Pt questioned observation status.
TT Dr Do she said that pt is still Observation.
Informed pt that he was still observation.
Pt will see PCP tomorrow and set up out pt PT.
PLAN Home no needs
[2023-08-26 15:19] VITALS: BP 145/88
--- NOTE | 2023-08-26 17:32 | W.DCSUMMARY ---
Discharge Summary
Discharge Data
Date of Admission: 08/24/23
Date of Discharge: 08/26/23
-
Pending Results: No
Hospital Course
Discharge diagnosis:
Left hip pain
Left rectus femoris tear
Left gluteus minimus tendon tendinosis/abductor tendinitis
Acute left lower extremity deep vein thrombosis
Consults: Orthopedic surgery
Left hip MRI:
Avulsion injury of the left rectus femoris proximal attachment as described.
Mild distal insertional tendinosis of the left gluteus minimus tendon.
Hospital course:
52-year-old male with recently diagnosed acute left lower extremity DVT on Eliquis was sent by his PCP to the ER to rule out septic arthritis of the left hip. Patient reports severe left hip pain, he denies any recent falls, traumas, or injury.
Blood cultures were negative for 2 days. MRI of the left hip was negative for infection, it does show an avulsion injury of the left rectus femoris muscle, as well as mild distal insertional tendinosis of the left gluteus [place] tendon.
Patient was seen in conjunction with orthopedic surgery, who states his pain is due to rectus femoris tearing and abductor tendinitis. He was treated with prednisone, acetaminophen, and oxycodone. He was seen in conjunction with PT, who
recommended outpatient PT. His pain improved.
He is medically stable for discharge on acetaminophen 1 g 3 times daily, prednisone 40 mg daily for 4 more days, and oxycodone 5 mg 3 times daily as needed. He is also discharged on miralax. He is to continue Eliquis. He needs to follow-up with
orthopedic surgery in the office in 2-3 weeks, as well as his primary care doctor in 1 week.
Disposition: Home with outpatient PT
Discharge: Planning required 36 minutes
Discharge Plan
-
Patient Disposition: Home (Routine Discharge)
Discharge Diagnosis/Procedures: Left hip pain, suspect rectus femoris tearing and abductor tendinitis, left deep vein thrombosis
Condition: Good
Diet: Regular
Activity: As tolerated
Driving Restrictions: As prior to admission
Other Services: PT
Activity Restrictions/Additional Instructions:
Take eliquis 10 mg twice daily for 13 doses through 08/31, then decrease to 5mg twice daily on 09/01.
Follow-up with orthopedic surgery in the office in 2-3 weeks, and your primary care doctor in 1 week.
Referrals:
Margarito Aquino DO [Active] - in two to three weeks
Wayne Hager MD [Family Provider] - in one week
Prescriptions:
New
prednisone 20 mg Tablet
40 mg PO DAILY 4 Days Qty: 8 0RF
polyethylene glycol 3350 17 gram/dose powder
17 g PO DAILY Qty: 510 0RF
oxycodone 5 mg tablet
5 mg PO TID PRN (Reason: pain) Qty: 30 0RF
Changed
acetaminophen 500 mg Tablet
1,000 mg PO TID Qty: 0 0RF
Eliquis 5 mg tablet
See Rx Instructions .ROUTE .COMPLEX 30 Days Qty: 75 0RF
Rx Instructions:
10 mg BID for 13 doses, then decrease to 5mg BID
Discharge Orders:
Discharge Patient (As Directed); Ordered 08/26/23
Ordered By: Devonte Bernard
Discharge Date and Time
Discharge Date/Time: 08/26/23 15:30
[2023-08-27 15:17] LABS: CRP, Highly Sensitive > 15.00 mg/L
== END 2023-08-26 15:30 | disposition home or self-care (01) ==
LOC: 3 WEST ACU 17:12
PROVIDERS: Internal Medicine; Registered Nurse; ADMITTING PHYSICIAN Internal Medicine; ATTENDING PHYSICIAN Family Medicine; CONSULT PHYSICIAN Orthopaedic Surgery; EMERGENCY PHYSICIAN Emergency Medicine; FAMILY PHYSICIAN Family Medicine
DX: M25.552 Pain in left hip (principal); I82.452 Acute embolism and thrombosis of left peroneal vein
CPT/HCPCS: 73721; 80053; 82550; 82553; 83605; 85025; 85027; 85652; 85730; 86141; 87040; 96361; 96374; 96375; 97161; 97165; 97530; 97535; 99284; G0378

== ENCOUNTER → 2023-09-23 08:07 | Outpatient (REF) | payer BC, SELFPAY | LOC: RAD 08:07 | PROVIDERS: ATTENDING PHYSICIAN Family Medicine | DX: I82.452 Acute embolism and thrombosis of left peroneal vein (principal) | CPT/HCPCS: 93971 ==

== ENCOUNTER → 2024-01-06 15:23 | Outpatient (REF) | payer BC, SELFPAY | LOC: CLAB 15:23 | PROVIDERS: ATTENDING PHYSICIAN Surgery | DX: A63.0 Anogenital (venereal) warts (principal) | CPT/HCPCS: 87624; 88112 ==

== ENCOUNTER → 2024-03-12 08:07 | Outpatient (REF) | payer BC, SELFPAY | LOC: HWRAD 08:07 | PROVIDERS: ATTENDING PHYSICIAN Nurse Practitioner Family | DX: M89.8X8 Other specified disorders of bone, other site (principal) | CPT/HCPCS: 71046 ==